=== PATIENT | male | born 1940 | race Caucasian/White ===

== ENCOUNTER 2016-09-16 15:44 | Emergency (ER) | payer OTHER, BC ==
[~2016-09-16] VITALS: Ht 185.4 cm; Wt 83.8 kg
[~2016-09-16 15:44] MED LIST: ALTACE10 MG PO; AVODART0.5 MG PO; COREG12.5 M1 PO; ECOTRIN325 MG PO; MEN'S MULTI-VI1 EACH PO; PREVACID15 MG PO; VITAMIN D31000 UNIT PO; VYTORIN 10/81 TABLET PO
[2016-09-16 16:20] LABS: HEMATOCRIT 43.3 % (38.0-50.0); MCHC 35.1 G/DL (30.0-36.0); MCV 93.9 FL (86-99); MEAN PLAT.VOLUME 10.6 uM^3 (9.0-12.4); PLATELET COUNT 215 K/uL (156-360); RBC DIS.WIDTH-CV 12.4 % (11.8-14.6); RBC DIS.WIDTH-SD 41.3 % (39-53); RED BLOOD COUNT 4.61 M/uL (4.00-5.50); WHITE BLOOD COUNT 10.1 K/uL (4.1-10.2)
[2016-09-16 16:30] LABS: CHLORIDE 107 mEq/L (99-109); POTASSIUM 4.2 mEq/L (3.7-5.4); SODIUM 143 mEq/L (136-147)
[2016-09-16 16:32] LABS: GLUCOSE 119 mg/dL (70-99)
[2016-09-16 16:33] LABS: ANION GAP 11 MEQ/L (2-14)
[2016-09-16 16:34] LABS: TOTAL BILIRUBIN 0.9 mg/dL (0.0-1.0)
[2016-09-16 16:36] LABS: ALKALINE PHOSPHATASE 93 IU/L (3-129); GFR ESTIMATE (CALCULATED) 57 mL/min/
[2016-09-16 16:37] LABS: UREA NITROGEN (BUN) 11 mg/dL (9-23)
[2016-09-16 17:35] LABS: TROP-I INTERPRETATION NEGATIVE; TROPONIN-I 0.02 ng/mL (0.0-0.30)
[2016-09-16 18:00] LABS: ADD MIUA? NO; BILIRUBIN NEGATIVE; BLOOD NEGATIVE; COLOR YELLOW ((YELLOW)); GLUCOSE (STRIP) NEGATIVE; KETONES NEGATIVE; LEUKOCYTES NEGATIVE; NITRITE NEGATIVE; PROTEIN (STRIP) NEGATIVE; SPECIFIC GRAVITY 1.009 (1.000-1.030); UCUL ADDED? NO; UROBILINOGEN 0.2 MG/DL (0.2-1.0)
[2016-09-16 18:44] VITALS: BP 143/95
== END 2016-09-16 18:44 | disposition home or self-care (01) ==
LOC: EME 15:44
PROVIDERS: Emergency Medicine
DX: R11.0 Nausea (principal); Z98.890 Other specified postprocedural states; E78.5 Hyperlipidemia, unspecified; I25.2 Old myocardial infarction; Z86.73 Personal history of transient ischemic attack (TIA), and cerebral infarction without residual deficits; Z98.61 Coronary angioplasty status; F17.200 Nicotine dependence, unspecified, uncomplicated
CPT/HCPCS: 80053; 81003; 84484; 85027; 93005; 99281; 99285; J2405